=== PATIENT | male | born 2005 | race African-American/Black ===

== ENCOUNTER 2023-08-22 18:55 | Emergency (ER) | payer MEDICAID ==
[~2023-08-22] VITALS: Ht 180.3 cm; Wt 86.2 kg
[2023-08-22 19:18] VITALS: BP 115/63; PULSE 93; RESP 16; TEMP 98.6; O2SAT 100
== END 2023-08-22 19:48 | disposition home or self-care (01) ==
LOC: ER 19:08
DX: T16.1XXA Foreign body in right ear, initial encounter (principal); X58.XXXA Exposure to other specified factors, initial encounter; Y93.89 Activity, other specified; Y92.89 Other specified places as the place of occurrence of the external cause; Y99.8 Other external cause status
CPT/HCPCS: 69200; 99284

== ENCOUNTER 2025-06-02 22:30 | Emergency (ER) | payer MEDICAID, OTHER ==
[~2025-06-02] VITALS: Ht 188 cm; Wt 82.0 kg
[2025-06-02 22:39] VITALS: O2SAT 100
[2025-06-02] MEDS ORDERED: KETOROLAC 15MG/ML VIAL IM ONE (22:45)
[2025-06-03 00:50] LABS: CLARITY URINE CLEAR (CLEAR); COLOR URINE YELLOW (YELLOW); GLUCOSE URINE NEGATIVE (NEGATIVE); KETONES URINE NEGATIVE (NEGATIVE); LEUKOCYTE ESTERASE URINE TRACE (NEGATIVE); NITRITE URINE NEGATIVE (NEGATIVE); OCCULT BLOOD URINE NEGATIVE (NEGATIVE); PH URINE 6.5 (4.5-8.0); PROTEIN URINE 1+ (NEGATIVE); SPECIFIC GRAVITY URINE 1.014 (1.005-1.030); UROBILINOGEN URINE 1.0 E.U./dL (0.2-1.0)
[2025-06-03] MEDS ORDERED: DOXY100T2 MT (00:53)
[2025-06-03] MEDS: LIDOCAINE HCL 1% 20ML VIAL INFIL ONE (01:04)
[2025-06-03] MEDS: CEFTRIAXONE SODIUM 500MG VIAL IM ONE (01:04)
[2025-06-03] MEDS: KETOROLAC 15MG/ML VIAL IM NR (01:04)
[2025-06-03 01:05] VITALS: BP 129/88; PULSE 97; RESP 18; TEMP 37.2; O2SAT 100
[2025-06-03 01:11] LABS: RBC URINE 0-2 /hpf (0-2)
[2025-06-03 01:12] LABS: SQUAMOUS EPITHELIAL CELL URINE NONE SEEN /lpf (RARE/1+)
[2025-06-03 01:30] LABS: BACTERIA URINE NONE SEEN
[2025-06-05 06:12] LABS: CHLAMYDIA TRACHOMATIS NAA Positive (Negative); NEISSERIA GONORRHOEAE NAA Negative (Negative)
== END 2025-06-03 01:05 | disposition home or self-care (01) ==
LOC: ER 22:30
DX: N45.3 Epididymo-orchitis (principal)
CPT/HCPCS: 99285; 93976; 76870; 87491; 87591; 81003; 96372; J1885; J0696; J2003

== ENCOUNTER 2025-06-10 12:17 | Emergency (ER) | payer MEDICAID ==
[~2025-06-10] VITALS: Ht 188 cm; Wt 80.0 kg
[~2025-06-10 12:17] MED LIST: DOXY100T2 MT
[2025-06-10 12:22] VITALS: O2SAT 100
[2025-06-10 14:18] LABS: CLARITY URINE CLEAR (CLEAR); COLOR URINE YELLOW (YELLOW); GLUCOSE URINE NEGATIVE (NEGATIVE); KETONES URINE NEGATIVE (NEGATIVE); LEUKOCYTE ESTERASE URINE NEGATIVE (NEGATIVE); NITRITE URINE NEGATIVE (NEGATIVE); OCCULT BLOOD URINE NEGATIVE (NEGATIVE); PH URINE 5.5 (4.5-8.0); PROTEIN URINE NEGATIVE (NEGATIVE); SPECIFIC GRAVITY URINE 1.020 (1.005-1.030); UROBILINOGEN URINE 0.2 E.U./dL (0.2-1.0)
[2025-06-10 16:10] VITALS: BP 141/80; PULSE 59; RESP 16; TEMP 37; O2SAT 98
[2025-06-12 17:10] LABS: CHLAMYDIA TRACHOMATIS NAA Negative (Negative); NEISSERIA GONORRHOEAE NAA Negative (Negative)
== END 2025-06-10 16:11 | disposition home or self-care (01) ==
LOC: ER 12:17
DX: Z20.2 Contact with and (suspected) exposure to infections with a predominantly sexual mode of transmission (principal); R30.9 Painful micturition, unspecified
CPT/HCPCS: 81003; 87491; 87591; 99283

== ENCOUNTER 2025-10-27 15:02 | Emergency (ER) | payer MEDICAID ==
[~2025-10-27] VITALS: Ht 185.4 cm; Wt 77.0 kg
[2025-10-27 15:17] VITALS: TEMP 36.8; O2SAT 100
[2025-10-27] MEDS ORDERED: DEXAMETHASONE 0.5MG/5ML ORAL SYR PO ONE (18:00)
[2025-10-27] MEDS: IBUPROFEN 600MG TABLET PO ONE (18:54)
[2025-10-27] MEDS: DEXAMETHASONE 4MG TABLET PO SCH (18:55)
[2025-10-27] MEDS ORDERED: IBUP-1455 MT (19:04)
[2025-10-27] MEDS ORDERED: BENZ1LOZ73 MM (19:04)
[2025-10-27 19:30] VITALS: BP 133/72; PULSE 72; RESP 14; O2SAT 100
== END 2025-10-27 19:45 | disposition home or self-care (01) ==
LOC: ER 15:02
DX: J02.8 Acute pharyngitis due to other specified organisms (principal)
CPT/HCPCS: 99283; 87430; 87070; J8540